=== PATIENT | male | born 1955 | race Caucasian/White ===

== ENCOUNTER 2016-06-29 08:00 | Inpatient (IN) | payer MEDICAID ==
[~2016-06-29] VITALS: Ht 180.3 cm; Wt 137.7 kg
[~2016-06-29 08:00] MED LIST: ASPI81TA27 PO; ATOR1TAB PO; BENA10TA3 PO; CARV25TA55 PO; CLOP75TA41 PO; FURO40TA4 PO; INSUINJ37 SUBCUT; METF-312 PO; POTA10TA34 PO
[2016-06-29 08:44] LABS: Basophils # (auto) 0 uL; Basophils % (auto) 0.4 % (0.0-2.0); Eosinophils # (auto) 0.2 uL; Hematocrit 48.8 % (41.0-53.0); Hemoglobin 16.5 g/dL (13.5-17.5); Lymphocytes # (auto) 1.1 uL; Lymphocytes % (auto) 13.4 % (10.0-50.0); Mean Corpuscular Hgb Conc. 33.9 g/dL (32.0-36.0); Mean Corpuscular Volume 91.2 fL (80.0-100.0); Mean Platelet Volume 8.6 fL (7.4-10.4); Monocytes # (auto) 0.7 uL; Monocytes % (auto) 8.7 % (0.0-12.0); Neutrophils # (auto) 6.1 uL; Neutrophils % (auto) 75.5 % (37.0-80.0); Platelet Count (auto) 196 10^3/uL (140-450); Red Cell Distribution Width 13.8 % (11.6-16.0); White Blood Cell 8.1 10^3/uL (4.4-10.8)
[2016-06-29 09:09] LABS: Albumin 3.9 g/dL (3.4-5.0); BUN/Creatinine Ratio 14.3; Calcium 8.2 mg/dL (8.5-10.1); Magnesium 2.1 mg/dL (1.6-2.6); Potassium 4.4 mmol/L (3.5-5.1)
[2016-06-29 09:13] LABS: Bilirubin, Total 0.5 mg/dL (0.2-1.0); Total Protein 7.9 g/dL (6.4-8.2)
[2016-06-29] MEDS ORDERED: ASPirin 81 mg TAB PO ONE (09:30)
[2016-06-29] MEDS ORDERED: NITROGLYCERIN 0.4 MG SL TAB SL ONE (09:30)
[2016-06-29] MEDS ORDERED: ENOXAPARIN SOD 150 MG/1 ML SYRINGE SC ONE (10:15)
[2016-06-29] MEDS ORDERED: NITROGLYCERIN 0.4 MG SL TAB SL PRN (13:45)
[2016-06-29] MEDS ORDERED: MORPHINE SULF INJ 2 MG/ML SYRINGE 1ML IV PRN (13:45)
[2016-06-29] MEDS ORDERED: BENAZEPRIL HCL 10 MG TAB PO ONE (14:15)
[2016-06-29] MEDS ORDERED: CLOPIDOGREL BISULFATE 75 MG TAB PO ONE (14:30)
[2016-06-29] MEDS ORDERED: HEPARIN IN NS 1000U/500ML (2UNIT/ML) 500 ML BAG IV ONE (15:15)
[2016-06-29 16:14] LABS: INR 1.08 (0.9-1.15); Prothrombin Time 11.1 sec (9.37-12.3)
[2016-06-29 17:53] VITALS: BP 122/77
[2016-06-29 18:04] VITALS: BP 122/77
[2016-06-29] MEDS: FUROSEMIDE 40 MG TAB PO SCH (18:07)
[2016-06-29 21:42] VITALS: BP 102/71
[2016-06-29] MEDS: CARVEDILOL 12.5 MG TAB PO SCH (21:42)
[2016-06-29] MEDS: POTASSIUM CHLORIDE 8 MEQ TAB PO SCH (21:42)
[2016-06-29] MEDS: ENOXAPARIN SOD 60 MG/0.6 ML SYRINGE SC SCH (21:42)
[2016-06-29] MEDS: metFORMIN HYDROCHLORIDE 500 MG TAB PO SCH (21:42)
[2016-06-29] MEDS: ATORVASTATIN 20 MG TAB PO SCH (21:42)
[2016-06-29] MEDS: INSULIN DETEMIR(LEVEMIR) 1unit/0.01ml Soln (100units/ml) SC SCH (21:50)
[2016-06-29] MEDS ORDERED: PATIENTS OWN MEDICATION (Carvedilol 25 MG) PO SCH ×2 (22:00)
[2016-06-30 05:00] VITALS: BP 121/84
[2016-06-30] MEDS: FUROSEMIDE 40 MG TAB PO SCH ×2 (06:37→18:37)
[2016-06-30 08:45] VITALS: BP 107/71
[2016-06-30] MEDS ORDERED: INSULIN GLARGINE 20 UNIT SUBCUT SCH (10:00)
[2016-06-30] MEDS ORDERED: PATIENTS OWN MEDICATION (Atorvastatin Calcium 1 TAB) PO SCH ×2 (10:00)
[2016-06-30] MEDS: ENOXAPARIN SOD 60 MG/0.6 ML SYRINGE SC SCH ×2 (10:17→22:06)
[2016-06-30] MEDS: metFORMIN HYDROCHLORIDE 500 MG TAB PO SCH (10:17)
[2016-06-30] MEDS: POTASSIUM CHLORIDE 8 MEQ TAB PO SCH ×2 (10:18→22:05)
[2016-06-30] MEDS: CLOPIDOGREL BISULFATE 75 MG TAB PO SCH (10:18)
[2016-06-30] MEDS: BENAZEPRIL HCL 10 MG TAB PO SCH (10:18)
[2016-06-30] MEDS: ASPirin-EC 81 mg tab PO SCH (10:19)
[2016-06-30] MEDS: CARVEDILOL 12.5 MG TAB PO SCH ×2 (10:19→22:05)
[2016-06-30 13:00] VITALS: BP 110/67
[2016-06-30] MEDS ORDERED: DEXTROSE (50%) 50ML SYRG IV PRN (14:15)
[2016-06-30] MEDS: SOD CHL 0.45% 1,000 ML IV SCH (15:04)
[2016-06-30 17:00] VITALS: BP 110/71
[2016-06-30] MEDS: ACCU-CHEK COMFORT CURVE STRIP VI SCH (18:37)
[2016-06-30] MEDS: InsuLIN REG 1unit/0.01ml Soln (100units/ml) SC SCH (18:46)
[2016-06-30 22:00] VITALS: BP 114/75
[2016-06-30] MEDS: INSULIN DETEMIR(LEVEMIR) 1unit/0.01ml Soln (100units/ml) SC SCH (22:00)
[2016-06-30] MEDS: ATORVASTATIN 20 MG TAB PO SCH (22:05)
[2016-06-30] MEDS: ACETYLCYSTEINE ORAL for CIN 20%(200MG/ML) 4ML PO SCH (22:06)
[2016-07-01] MEDS: ACCU-CHEK COMFORT CURVE STRIP VI SCH ×3 (01:14→12:40)
[2016-07-01] MEDS: SOD CHL 0.45% 1,000 ML IV SCH (05:13)
[2016-07-01 05:31] VITALS: BP 114/79
[2016-07-01 06:31] LABS: Basophils # (auto) 0 uL; Basophils % (auto) 0.4 % (0.0-2.0); Eosinophils # (auto) 0.2 uL; Eosinophils % (auto) 2.8 % (0.0-7.0); Hematocrit 43.9 % (41.0-53.0); Hemoglobin 15.4 g/dL (13.5-17.5); Lymphocytes # (auto) 1.2 uL; Lymphocytes % (auto) 17.8 % (10.0-50.0); Mean Corpuscular Hemoglobin 31.8 pg (28.0-32.0); Mean Corpuscular Hgb Conc. 35.2 g/dL (32.0-36.0); Mean Corpuscular Volume 90.3 fL (80.0-100.0); Mean Platelet Volume 8.3 fL (7.4-10.4); Monocytes # (auto) 0.7 uL; Neutrophils # (auto) 4.5 uL; Platelet Count (auto) 167 10^3/uL (140-450); Red Cell Distribution Width 14.2 % (11.6-16.0); White Blood Cell 6.6 10^3/uL (4.4-10.8)
[2016-07-01 06:33] LABS: INR 1.11 (0.9-1.15); Partial Thromboplastin Time 31.3 sec (22.64-33.71); Prothrombin Time 11.4 sec (9.37-12.3)
[2016-07-01] MEDS: FUROSEMIDE 40 MG TAB PO SCH (06:35)
[2016-07-01] MEDS: InsuLIN REG 1unit/0.01ml Soln (100units/ml) SC SCH ×3 (06:36→12:00)
[2016-07-01 06:40] LABS: Potassium 3.9 mmol/L (3.5-5.1)
[2016-07-01 06:50] LABS: BUN/Creatinine Ratio 13.7; Calcium 7.9 mg/dL (8.5-10.1)
[2016-07-01] MEDS ORDERED: fentaNYL CITRATE 100 MCG/2 ML VL ONE (08:13)
[2016-07-01] MEDS ORDERED: MIDAZOLAM HCL 1MG/1ML-2 ML VIAL ONE (08:13)
[2016-07-01] MEDS ORDERED: methylPREDNISolone SOD SUCC 125 MG/2 ML VL ONE (08:14)
[2016-07-01] MEDS ORDERED: ANGIOMAX 250 MG VIAL IV ONE (08:14)
[2016-07-01] MEDS ORDERED: SODIUM CHL 0.9% 50 ML ONE (08:14)
[2016-07-01] MEDS ORDERED: diphenhdrAMINE HCL 50 MG/1 ML VL ONE (08:15)
[2016-07-01] MEDS ORDERED: LIDOCAINE 2%HCL (LOCAL ANESTH.) INJ 20ML MDV ONE (08:42)
[2016-07-01] MEDS ORDERED: IOHEXOL 350 MG/ML 100ML IJ ONE (08:43)
[2016-07-01] MEDS: ENOXAPARIN SOD 60 MG/0.6 ML SYRINGE SC SCH (09:46)
[2016-07-01] MEDS: ASPirin-EC 81 mg tab PO SCH (12:30)
[2016-07-01] MEDS: CLOPIDOGREL BISULFATE 75 MG TAB PO SCH (12:30)
[2016-07-01] MEDS: POTASSIUM CHLORIDE 8 MEQ TAB PO SCH (12:30)
[2016-07-01] MEDS: CARVEDILOL 12.5 MG TAB PO SCH (12:31)
[2016-07-01] MEDS: BENAZEPRIL HCL 10 MG TAB PO SCH (12:32)
[2016-07-01 12:37] VITALS: BP 134/88
[2016-07-01] MEDS: ACETYLCYSTEINE ORAL for CIN 20%(200MG/ML) 4ML PO SCH (12:40)
[2016-07-01] MEDS ORDERED: SODIUM CHLOR 0.9% PF (SALINE LOCK) 10ML VIAL IV SCH (14:00)
[2016-07-01 14:40] VITALS: BP 134/88
[2016-07-01 14:59] VITALS: BP 134/88
== END 2016-07-01 16:53 | disposition home or self-care (01) | DRG 174 ==
LOC: ER 08:01 → TELE 08:02 → TELE-WESTW 17:35
PROVIDERS: ADMIT Internal Medicine Cardiovascular Disease; ATTEND Internal Medicine Cardiovascular Disease
PROC: 027034Z Dilation of Coronary Artery, One Artery with Drug-eluting Intraluminal Device, Percutaneous Approach (ICD-10-PCS; principal; 2016-07-01)
PROC: 4A023N7 Measurement of Cardiac Sampling and Pressure, Left Heart, Percutaneous Approach (ICD-10-PCS; 2016-07-01)
PROC: B2111ZZ Fluoroscopy of Multiple Coronary Arteries using Low Osmolar Contrast (ICD-10-PCS; 2016-07-01)
PROC: B2151ZZ Fluoroscopy of Left Heart using Low Osmolar Contrast (ICD-10-PCS; 2016-07-01)
DX: I21.4 Non-ST elevation (NSTEMI) myocardial infarction (principal); I42.0 Dilated cardiomyopathy; E11.21 Type 2 diabetes mellitus with diabetic nephropathy; I50.9 Heart failure, unspecified; I13.0 Hypertensive heart and chronic kidney disease with heart failure and stage 1 through stage 4 chronic kidney disease, or unspecified chronic kidney disease; Z68.41 Body mass index [BMI] 40.0-44.9, adult; E66.2 Morbid (severe) obesity with alveolar hypoventilation; I25.5 Ischemic cardiomyopathy; I48.91 Unspecified atrial fibrillation; I25.110 Atherosclerotic heart disease of native coronary artery with unstable angina pectoris; J98.11 Atelectasis; E11.22 Type 2 diabetes mellitus with diabetic chronic kidney disease; N18.2 Chronic kidney disease, stage 2 (mild); Z79.82 Long term (current) use of aspirin; I25.2 Old myocardial infarction; Z95.810 Presence of automatic (implantable) cardiac defibrillator; Z82.49 Family history of ischemic heart disease and other diseases of the circulatory system; Z91.041 Radiographic dye allergy status; Z91.09 Other allergy status, other than to drugs and biological substances
CPT/HCPCS: 36415; 71020; 80048; 80053; 82962; 83735; 84484; 85025; 85610; 85730; 86850; 86900; 86901; 92928; 93005; 93458; 96372; 99152; 99291; C1874; C1887; J1815; J2250

== ENCOUNTER → 2016-08-20 | Outpatient (CLI) | payer MEDICAID | END | disposition home or self-care (01) | LOC: Rad HDHVI 08:54 | PROVIDERS: ATTEND Internal Medicine Cardiovascular Disease | DX: R06.02 Shortness of breath (principal); Z95.5 Presence of coronary angioplasty implant and graft | CPT/HCPCS: 93306 ==

== ENCOUNTER 2019-09-12 22:12 | Inpatient (IN) | payer MEDICAID, OTHER ==
[~2019-09-12] VITALS: Ht 180.3 cm; Wt 113.7 kg
[~2019-09-12 22:12] MED LIST changes: +ASPI-404 PO; -ASPI81TA27 PO; -BENA10TA3 PO; +BENA10TA9 PO; -METF-312 PO; +METF-370 PO; -POTA10TA34 PO; +POTA1TAB61 PO
[2019-09-12 23:01] LABS: Basophils # (auto) 0 10 ^3/uL (0-0.2); Basophils % (auto) 0.5 % (0.0-2.0); Eosinophils # (auto) 0.1 10 ^3/uL (0-0.8); Eosinophils % (auto) 1.2 % (0.0-7.0); Hematocrit 49.1 % (41.0-53.0); Hemoglobin 16.7 g/dL (13.5-17.5); Lymphocytes # (auto) 0.9 10 ^3/uL (0.4-5.4); Lymphocytes % (auto) 9.5 % (10.0-50.0); Mean Corpuscular Volume 97.1 fL (80.0-100.0); Monocytes # (auto) 0.7 10 ^3/uL (0-1.3); Monocytes % (auto) 7.9 % (0.0-12.0); Neutrophils # (auto) 7.4 10 ^3/uL (1.6-8.6); Neutrophils % (auto) 80.9 % (37.0-80.0); Platelet Count (auto) 179 10^3/uL (140-450); Red Blood Cells 5.05 10^6/uL (4.5-5.90); Red Cell Distribution Width 14.6 % (11.8-14.3); White Blood Cell 9.2 10^3/uL (4.4-10.8)
[2019-09-12 23:16] LABS: INR 1.18 (0.9-1.15); Partial Thromboplastin Time 44.7 sec (23.64-32.05)
[2019-09-12 23:21] LABS: Potassium 4.4 mmol/L (3.5-5.1)
[2019-09-12 23:26] LABS: Albumin 3.5 g/dL (3.4-5.0); BUN/Creatinine Ratio 14.8; Calcium 8.4 mg/dL (8.5-10.1)
[2019-09-12 23:31] LABS: Bilirubin, Total 0.8 mg/dL (0.2-1.0); Total Protein 7.7 g/dL (6.4-8.2)
[2019-09-13 00:54] LABS: Urine Bacteria FEW /hpf (None Seen); Urine Blood Negative /uL (Negative); Urine Hyaline Cast FEW /lpf (0 - 2); Urine Mucus FEW (None Seen); Urine Specific Gravity 1.015 (1.001-1.035); Urine WBC 1 /hpf (0 - 3)
[2019-09-13] MEDS ORDERED: InsuLIN REG 1unit/0.01ml Soln (100units/ml) IV ONE (01:30)
[2019-09-13] MEDS ORDERED: ONDANSETRON HCL 4 MG/2 ML VIAL IV PRN (02:30)
[2019-09-13] MEDS ORDERED: ACETAMINOPHEN 325 MG TAB PO PRN (02:30)
[2019-09-13] MEDS ORDERED: DEXTROSE (50%) 50ML SYRG IV PRN (02:30)
[2019-09-13] MEDS ORDERED: TEMAZEPAM 15 MG CAP PO PRN (02:30)
[2019-09-13] MEDS ORDERED: MORPHINE SULF INJ 2 MG/ML SYRINGE 1ML IV PRN (02:45)
[2019-09-13] MEDS ORDERED: NITROGLYCERIN 0.4 MG SL TAB SL PRN (02:45)
[2019-09-13 05:00] VITALS: BP 135/97
[2019-09-13] MEDS ORDERED: DABI75CA5 PO (05:00)
[2019-09-13] MEDS ORDERED: GLIP5TAB12 PO (05:02)
[2019-09-13] MEDS ORDERED: CHOL20007 PO (05:02)
[2019-09-13] MEDS: FUROSEMIDE 40 MG TAB PO SCH ×2 (05:58→18:01)
[2019-09-13] MEDS: ACCU-CHEK COMFORT CURVE STRIP VI SCH ×3 (06:05→18:01)
[2019-09-13] MEDS: InsuLIN REG 1unit/0.01ml Soln (100units/ml) SC SCH ×3 (06:14→18:05)
[2019-09-13 09:00] VITALS: BP 124/80
[2019-09-13] MEDS ORDERED: CLOPIDOGREL BISULFATE 75 MG TAB PO SCH (10:00)
[2019-09-13] MEDS: ENOXAPARIN SOD 40 MG/0.4 ML SYRINGE SC SCH (10:00)
[2019-09-13] MEDS: PANTOPRAZOLE 40 MG TAB PO SCH ×2 (10:00→11:46)
[2019-09-13] MEDS ORDERED: OPTISON 3ml Vial for INJ IV ONE (10:58)
[2019-09-13] MEDS: ASPirin 81 mg TAB PO SCH (11:44)
[2019-09-13] MEDS: CARVEDILOL 12.5 MG TAB PO SCH ×2 (11:45→21:32)
[2019-09-13] MEDS: BENAZEPRIL HCL 10 MG TAB PO SCH (11:46)
[2019-09-13 12:58] VITALS: BP 124/81
[2019-09-13 16:44] VITALS: BP 111/66
[2019-09-13 22:00] VITALS: BP 106/72
[2019-09-13] MEDS ORDERED: ATORVASTATIN 20 MG TAB PO SCH (22:00)
[2019-09-14] VITALS (16 sets, daily range): BP systolic 102–126; BP diastolic 54–76
[2019-09-14] MEDS: ACCU-CHEK COMFORT CURVE STRIP VI SCH ×4 (00:13→17:46)
[2019-09-14] MEDS: InsuLIN REG 1unit/0.01ml Soln (100units/ml) SC SCH ×4 (06:00→17:47)
[2019-09-14] MEDS: FUROSEMIDE 40 MG TAB PO SCH ×2 (06:22→17:42)
[2019-09-14] MEDS ORDERED: LIDOCAINE 2%HCL (LOCAL ANESTH.) INJ 20ML MDV ONE (08:32)
[2019-09-14] MEDS ORDERED: IODIXANOL 320MG/ML 100ML BTL IV ONE ×2 (08:32→08:55)
[2019-09-14] MEDS ORDERED: fentaNYL CITRATE 100 MCG/2 ML VL ONE (08:54)
[2019-09-14] MEDS ORDERED: MIDAZOLAM HCL 1MG/1ML-2 ML VIAL ONE (08:54)
[2019-09-14] MEDS ORDERED: VERAPAMIL 2.5MG/ML INJ 2ML VIAL IV ONE ×2 (08:54→08:59)
[2019-09-14] MEDS ORDERED: ANGIOMAX 250 MG VIAL IV ONE (08:54)
[2019-09-14] MEDS ORDERED: SODIUM CHL 0.9% 0 ML ONE (08:55)
[2019-09-14] MEDS ORDERED: CLOPIDOGREL 300 MG TAB PO ONE (10:00)
[2019-09-14] MEDS: ENOXAPARIN SOD 40 MG/0.4 ML SYRINGE SC SCH (10:36)
[2019-09-14] MEDS ORDERED: CLOPIDOGREL 300 MG TAB ONE (10:39)
[2019-09-14] MEDS: ASPirin 81 mg TAB PO SCH (10:44)
[2019-09-14] MEDS: PANTOPRAZOLE 40 MG TAB PO SCH (10:44)
[2019-09-14] MEDS: BENAZEPRIL HCL 10 MG TAB PO SCH (10:45)
[2019-09-14 10:46] LABS: Basophils # (auto) 0 10 ^3/uL (0-0.2); Basophils % (auto) 0.5 % (0.0-2.0); Eosinophils # (auto) 0.1 10 ^3/uL (0-0.8); Eosinophils % (auto) 1.7 % (0.0-7.0); Hematocrit 48.3 % (41.0-53.0); Hemoglobin 16.3 g/dL (13.5-17.5); Lymphocytes # (auto) 0.7 10 ^3/uL (0.4-5.4); Lymphocytes % (auto) 9.2 % (10.0-50.0); Mean Corpuscular Hgb Conc. 33.7 g/dL (32.0-36.0); Mean Corpuscular Volume 97.8 fL (80.0-100.0); Monocytes # (auto) 0.7 10 ^3/uL (0-1.3); Monocytes % (auto) 9.8 % (0.0-12.0); Neutrophils # (auto) 5.6 10 ^3/uL (1.6-8.6); Neutrophils % (auto) 78.8 % (37.0-80.0); Platelet Count (auto) 160 10^3/uL (140-450); Red Blood Cells 4.94 10^6/uL (4.5-5.90); Red Cell Distribution Width 14.7 % (11.8-14.3); White Blood Cell 7.1 10^3/uL (4.4-10.8)
[2019-09-14] MEDS: CARVEDILOL 12.5 MG TAB PO SCH (10:52)
[2019-09-14 10:59] LABS: Calcium 8.3 mg/dL (8.5-10.1); Potassium 4.4 mmol/L (3.5-5.1)
[2019-09-14] MEDS ORDERED: ENOXAPARIN SOD 100 MG/1 ML SYRINGE SC SCH (11:15)
[2019-09-15] MEDS ORDERED: CLOPIDOGREL BISULFATE 75 MG TAB PO SCH (10:00)
[2019-09-15] MEDS ORDERED: AMIODARONE HCL 200 MG TAB PO SCH (10:00)
[2019-09-15] MEDS ORDERED: ENOXAPARIN SOD 100 MG/1 ML SYRINGE SC SCH (10:00)
== END 2019-09-14 20:50 | disposition short-term general hospital (02) | DRG 280 ==
LOC: EDBD 22:12 → ER 22:14 → UNDOADMIN 22:15 → WEST WING 22:15 → TELE 22:15 → TELE-WESTW 09-13 04:31 → DOU IN ICU 09-14 10:36
PROVIDERS: ADMIT Nurse Practitioner; ATTEND Family Medicine
PROC: 5A09357 Assistance with Respiratory Ventilation, Less than 24 Consecutive Hours, Continuous Positive Airway Pressure (ICD-10-PCS; principal; 2019-09-13)
PROC: B2111ZZ Fluoroscopy of Multiple Coronary Arteries using Low Osmolar Contrast (ICD-10-PCS; 2019-09-14)
PROC: 5A09357 Assistance with Respiratory Ventilation, Less than 24 Consecutive Hours, Continuous Positive Airway Pressure (ICD-10-PCS; 2019-09-14)
DX: T82.119A Breakdown (mechanical) of unspecified cardiac electronic device, initial encounter (principal); I21.4 Non-ST elevation (NSTEMI) myocardial infarction; I50.23 Acute on chronic systolic (congestive) heart failure; I13.0 Hypertensive heart and chronic kidney disease with heart failure and stage 1 through stage 4 chronic kidney disease, or unspecified chronic kidney disease; Z68.41 Body mass index [BMI] 40.0-44.9, adult; N18.3 Chronic kidney disease, stage 3 (moderate); E11.22 Type 2 diabetes mellitus with diabetic chronic kidney disease; E78.5 Hyperlipidemia, unspecified; E66.01 Morbid (severe) obesity due to excess calories; E11.65 Type 2 diabetes mellitus with hyperglycemia; I25.10 Atherosclerotic heart disease of native coronary artery without angina pectoris; E78.00 Pure hypercholesterolemia, unspecified; I48.91 Unspecified atrial fibrillation; Z88.8 Allergy status to other drugs, medicaments and biological substances; Z91.040 Latex allergy status; Z98.61 Coronary angioplasty status; Z79.4 Long term (current) use of insulin; Z79.84 Long term (current) use of oral hypoglycemic drugs; Z79.899 Other long term (current) drug therapy; Z95.0 Presence of cardiac pacemaker; Z82.49 Family history of ischemic heart disease and other diseases of the circulatory system; Z80.8 Family history of malignant neoplasm of other organs or systems; Z83.3 Family history of diabetes mellitus; Z79.82 Long term (current) use of aspirin; Z03.818 Encounter for observation for suspected exposure to other biological agents ruled out
CPT/HCPCS: 36415; 70450; 71045; 72125; 80048; 80053; 81001; 82962; 83036; 84484; 85025; 85610; 85730; 87081; 93005; 93306; 93454; 93886; 94660; 96374; 99152; G0378; J1815; J2250; Q9956; Q9967

== ENCOUNTER 2020-07-06 19:03 | Inpatient (IN) | payer OTHER ==
[~2020-07-06] VITALS: Ht 180.3 cm; Wt 136.6 kg
[~2020-07-06 19:03] MED LIST changes: -ASPI-404 PO; +ASPI-543 PO; +ATOR-47 PO; -ATOR1TAB PO; +CHOL20007 PO; -CLOP75TA41 PO; +DABI75CA5 PO; +GLIP5TAB12 PO
[2020-07-06 19:40] LABS: Basophils # (auto) 0.1 10 ^3/uL (0-0.2); Basophils % (auto) 1.8 % (0.0-2.0); Eosinophils # (auto) 0.1 10 ^3/uL (0-0.8); Eosinophils % (auto) 1.1 % (0.0-7.0); Hematocrit 44.2 % (41.0-53.0); Hemoglobin 15.1 g/dL (13.5-17.5); Lymphocytes # (auto) 0.8 10 ^3/uL (0.4-5.4); Lymphocytes % (auto) 11.5 % (10.0-50.0); Mean Corpuscular Hemoglobin 32.7 pg (28.0-32.0); Mean Corpuscular Hgb Conc. 34.1 g/dL (32.0-36.0); Mean Corpuscular Volume 95.7 fL (80.0-100.0); Monocytes # (auto) 0.8 10 ^3/uL (0-1.3); Monocytes % (auto) 11.4 % (0.0-12.0); Neutrophils # (auto) 5.4 10 ^3/uL (1.6-8.6); Neutrophils % (auto) 74.2 % (37.0-80.0); Nucleated Red Blood Cells % 0.1 %; Platelet Count (auto) 189 10^3/uL (140-450); Red Blood Cells 4.62 10^6/uL (4.5-5.90); Red Cell Distribution Width 15.5 % (11.8-14.3); White Blood Cell 7.3 10^3/uL (4.4-10.8)
[2020-07-06 19:59] LABS: Albumin 3.3 g/dL (3.4-5.0); Calcium 8.2 mg/dL (8.5-10.1); Magnesium 1.9 mg/dL (1.6-2.6); Potassium 4.8 mmol/L (3.5-5.1)
[2020-07-06 20:05] LABS: BUN/Creatinine Ratio 24.3; Bilirubin, Total 0.6 mg/dL (0.2-1.0); Total Protein 7.1 g/dL (6.4-8.2)
[2020-07-06 20:39] LABS: INR 1.04 (0.9-1.15)
[2020-07-06] MEDS ORDERED: ENOXAPARIN SOD 150 MG/1 ML SYRINGE SC ONE (21:15)
[2020-07-06] MEDS ORDERED: ACETAMINOPHEN 325 MG TAB PO PRN (22:15)
[2020-07-06] MEDS ORDERED: TEMAZEPAM 15 MG CAP PO PRN (22:15)
[2020-07-06] MEDS ORDERED: MORPHINE SULF INJ 2 MG/ML SYRINGE 1ML IV PRN (22:15)
[2020-07-06] MEDS ORDERED: ONDANSETRON HCL 4 MG/2 ML VIAL IV PRN (22:15)
[2020-07-06] MEDS ORDERED: NITROGLYCERIN 0.4 MG SL TAB SL PRN (22:15)
[2020-07-06] MEDS ORDERED: DEXTROSE (50%) 50ML SYRG IV PRN (22:15)
[2020-07-06] MEDS ORDERED: IOHEXOL 350 MG/ML 100ML IJ ONE (22:30)
[2020-07-07] VITALS (23 sets, daily range): BP systolic 112–150; BP diastolic 55–75
[2020-07-07] MEDS: cefTRIAXone 1GM/50ML D5W 50 ML IV SCH (01:14)
[2020-07-07] MEDS ORDERED: CLOP75TA70 PO (03:43)
[2020-07-07] MEDS: FUROSEMIDE 20 MG TAB PO SCH ×2 (06:21→19:01)
[2020-07-07] MEDS: ACCU-CHEK COMFORT CURVE STRIP VI SCH ×4 (06:21→22:21)
[2020-07-07] MEDS: InsuLIN REG 1unit/0.01ml Soln (100units/ml) SC SCH ×4 (06:25→22:19)
[2020-07-07] MEDS ORDERED: HYDROcodone-ACET 5/325MG TAB PO ONE (06:30)
[2020-07-07 07:10] LABS: Urine Bacteria NONE SEEN /hpf (None Seen); Urine Blood TRACE /uL (Negative); Urine Specific Gravity 1.047 (1.001-1.035); Urine WBC <1 /hpf (0 - 3)
[2020-07-07] MEDS: CARVEDILOL 12.5 MG TAB PO SCH ×2 (09:46→22:15)
[2020-07-07] MEDS: FAMOTIDINE 20 MG TAB PO SCH ×2 (09:47→22:15)
[2020-07-07] MEDS ORDERED: DABIGATRAN 75 MG CAP PO SCH (10:00)
[2020-07-07] MEDS ORDERED: ASPirin 81 mg TAB PO SCH (10:00)
[2020-07-07 10:09] LABS: Basophils # (auto) 0.1 10 ^3/uL (0-0.2); Basophils % (auto) 0.6 % (0.0-2.0); Eosinophils # (auto) 0.1 10 ^3/uL (0-0.8); Eosinophils % (auto) 1.4 % (0.0-7.0); Hematocrit 45.8 % (41.0-53.0); Lymphocytes % (auto) 10.7 % (10.0-50.0); Mean Corpuscular Hemoglobin 33.2 pg (28.0-32.0); Mean Corpuscular Hgb Conc. 34.9 g/dL (32.0-36.0); Mean Corpuscular Volume 95.2 fL (80.0-100.0); Monocytes # (auto) 0.9 10 ^3/uL (0-1.3); Monocytes % (auto) 10.4 % (0.0-12.0); Neutrophils % (auto) 76.9 % (37.0-80.0); Nucleated Red Blood Cells % 0.1 %; Platelet Count (auto) 188 10^3/uL (140-450); Red Blood Cells 4.81 10^6/uL (4.5-5.90); Red Cell Distribution Width 15.4 % (11.8-14.3); White Blood Cell 9.1 10^3/uL (4.4-10.8)
[2020-07-07 10:35] LABS: Albumin 3.5 g/dL (3.4-5.0); Calcium 8.7 mg/dL (8.5-10.1); Potassium 3.9 mmol/L (3.5-5.1)
[2020-07-07 10:41] LABS: BUN/Creatinine Ratio 19.3; Bilirubin, Total 0.8 mg/dL (0.2-1.0); Total Protein 7.6 g/dL (6.4-8.2)
[2020-07-07] MEDS ORDERED: LIDOCAINE 2%HCL (LOCAL ANESTH.) INJ 20ML MDV ONE (12:31)
[2020-07-07] MEDS ORDERED: ANGIOMAX 250 MG VIAL IV ONE ×5 (13:05→14:29)
[2020-07-07] MEDS ORDERED: fentaNYL CITRATE 100 MCG/2 ML VL ONE (13:05)
[2020-07-07] MEDS ORDERED: MIDAZOLAM HCL 1MG/1ML-2 ML VIAL ONE (13:05)
[2020-07-07] MEDS ORDERED: SODIUM CHL 0.9% 50 ML ONE ×2 (13:05→13:52)
[2020-07-07] MEDS ORDERED: IODIXANOL 320MG/ML 100ML BTL IV ONE (13:06)
[2020-07-07] MEDS ORDERED: VERAPAMIL 2.5MG/ML INJ 2ML VIAL IV ONE (13:11)
[2020-07-07] MEDS ORDERED: FAMOTIDINE (10MG/ML) 2ML VL IV ONE (13:12)
[2020-07-07] MEDS ORDERED: diphenhdrAMINE HCL 50 MG/1 ML VL ONE (13:12)
[2020-07-07] MEDS ORDERED: methylPREDNISolone SOD SUCC 125 MG/2 ML VL ONE (13:12)
[2020-07-07] MEDS ORDERED: HEPARIN DRIP/D5W 100UNITS/ML 250 ML IV ONE (13:39)
[2020-07-07] MEDS ORDERED: MAGNESIUM SULFATE 1GM/100ML 100 ML IV STA (13:56)
[2020-07-07] MEDS ORDERED: NITROGLYCERIN 50MG/250ML 250 ML IV ONE (13:58)
[2020-07-07] MEDS ORDERED: FUROSEMIDE 20 MG/2 ML VIAL ONE (13:58)
[2020-07-07] MEDS ORDERED: NITROGLYCERIN 0.4MG/DOSE SPRAY 4.9GM ONE (13:59)
[2020-07-07] MEDS ORDERED: MAGNESIUM SULFATE 1GM/100ML 200 ML IV STA (14:04)
[2020-07-07] MEDS: NITROGLYCERIN 50MG/250ML 250 ML IV SCH (15:15)
[2020-07-07] MEDS: SODIUM CHL 0.9% IV SCH (15:25)
[2020-07-07] MEDS: ANGIOMAX IV SCH (15:25)
[2020-07-07] MEDS: HYDROmorphone HCL 2 MG/ML VL IV PRN (16:23)
[2020-07-07 19:23] LABS: INR > 8.0 (0.9-1.15); Partial Thromboplastin Time 128.4 sec (23.0-31.2)
[2020-07-07] MEDS ORDERED: INSULIN LANTUS (GLARGINE) 1 /0.01ml (100units/ml) SC SCH (22:00)
[2020-07-07] MEDS ORDERED: ATORVASTATIN 20 MG TAB PO SCH (22:00)
[2020-07-07 22:16] LABS: Basophils # (auto) 0 10 ^3/uL (0-0.2); Basophils % (auto) 0.2 % (0.0-2.0); Eosinophils # (auto) 0 10 ^3/uL (0-0.8); Eosinophils % (auto) 0.1 % (0.0-7.0); Hematocrit 41.8 % (41.0-53.0); Hemoglobin 14.9 g/dL (13.5-17.5); Lymphocytes # (auto) 0.5 10 ^3/uL (0.4-5.4); Lymphocytes % (auto) 5.4 % (10.0-50.0); Mean Corpuscular Hemoglobin 33.9 pg (28.0-32.0); Mean Corpuscular Hgb Conc. 35.6 g/dL (32.0-36.0); Mean Corpuscular Volume 95.2 fL (80.0-100.0); Monocytes # (auto) 0.2 10 ^3/uL (0-1.3); Monocytes % (auto) 2.4 % (0.0-12.0); Neutrophils # (auto) 7.8 10 ^3/uL (1.6-8.6); Neutrophils % (auto) 91.9 % (37.0-80.0); Nucleated Red Blood Cells % 0.1 %; Platelet Count (auto) 177 10^3/uL (140-450); Red Blood Cells 4.39 10^6/uL (4.5-5.90); Red Cell Distribution Width 15.2 % (11.8-14.3); White Blood Cell 8.5 10^3/uL (4.4-10.8)
[2020-07-08] VITALS (75 sets, daily range): BP systolic 92–166; BP diastolic 47–89
[2020-07-08] MEDS: ANGIOMAX IV SCH (02:00)
[2020-07-08] MEDS: SODIUM CHL 0.9% IV SCH (02:00)
[2020-07-08] MEDS: HYDROmorphone HCL 2 MG/ML VL IV PRN ×2 (02:18→04:20)
[2020-07-08 03:14] LABS: Basophils # (auto) 0 10 ^3/uL (0-0.2); Basophils % (auto) 0.1 % (0.0-2.0); Eosinophils # (auto) 0 10 ^3/uL (0-0.8); Eosinophils % (auto) 0.1 % (0.0-7.0); Lymphocytes # (auto) 0.6 10 ^3/uL (0.4-5.4); Monocytes # (auto) 0.7 10 ^3/uL (0-1.3); Red Cell Distribution Width 15.1 % (11.8-14.3)
[2020-07-08 03:17] LABS: Hemoglobin 14.3 g/dL (13.5-17.5); Lymphocytes % (auto) 5.6 % (10.0-50.0); Mean Corpuscular Hemoglobin 32.8 pg (28.0-32.0); Mean Corpuscular Hgb Conc. 34.1 g/dL (32.0-36.0); Mean Corpuscular Volume 96.3 fL (80.0-100.0); Monocytes % (auto) 6.3 % (0.0-12.0); Neutrophils # (auto) 9.5 10 ^3/uL (1.6-8.6); Neutrophils % (auto) 87.9 % (37.0-80.0); Nucleated Red Blood Cells % 0.1 %; Platelet Count (auto) 175 10^3/uL (140-450); Red Blood Cells 4.36 10^6/uL (4.5-5.90); White Blood Cell 10.8 10^3/uL (4.4-10.8)
[2020-07-08] MEDS ORDERED: PHENYLEPHRINE HCL 10 MG/ML VL ONE (05:12)
[2020-07-08] MEDS ORDERED: HYDROcodone-ACET 5/325MG TAB PO PRN (05:45)
[2020-07-08] MEDS ORDERED: hydrALAZINE HCL 20 MG/ML VL IV PRN (06:00)
[2020-07-08] MEDS ORDERED: hydrALAZINE HCL 20 MG/ML VL ONE (06:02)
[2020-07-08] MEDS: ACCU-CHEK COMFORT CURVE STRIP VI SCH ×2 (06:11→11:22)
[2020-07-08] MEDS: FUROSEMIDE 20 MG TAB PO SCH (06:11)
[2020-07-08] MEDS: InsuLIN REG 1unit/0.01ml Soln (100units/ml) SC SCH ×2 (06:43→11:25)
[2020-07-08] MEDS: NITROGLYCERIN 50MG/250ML 250 ML IV SCH (07:00)
[2020-07-08 08:23] LABS: INR 2.87 (0.9-1.15)
[2020-07-08 08:27] LABS: Albumin 3.4 g/dL (3.4-5.0); Calcium 8.1 mg/dL (8.5-10.1); Magnesium 2.4 mg/dL (1.6-2.6); Partial Thromboplastin Time 72.7 sec (23.0-31.2); Potassium 4.4 mmol/L (3.5-5.1)
[2020-07-08 08:31] LABS: BUN/Creatinine Ratio 21.4; Bilirubin, Total 1.4 mg/dL (0.2-1.0); Total Protein 7.2 g/dL (6.4-8.2)
[2020-07-08] MEDS: cefTRIAXone 1GM/50ML D5W 50 ML IV SCH (08:33)
[2020-07-08] MEDS: FAMOTIDINE 20 MG TAB PO SCH (09:50)
[2020-07-08] MEDS: CARVEDILOL 12.5 MG TAB PO SCH (09:50)
[2020-07-08] MEDS ORDERED: BENAZEPRIL HCL 10 MG TAB PO SCH (10:00)
[2020-07-08] MEDS ORDERED: CLOPIDOGREL BISULFATE 75 MG TAB PO SCH (10:00)
[2020-07-08 13:32] LABS: INR 2.14 (0.9-1.15)
[2020-07-08 14:10] LABS: Partial Thromboplastin Time 73.1 sec (23.0-31.2)
[2020-07-08] MEDS ORDERED: INSULIN LANTUS (GLARGINE) 1 /0.01ml (100units/ml) SC SCH (22:00)
== END 2020-07-08 17:45 | disposition short-term general hospital (02) | DRG 270 ==
LOC: ER 19:03 → EDBD 19:03 → TELE 22:15 → TELE-WESTW 07-07 01:30 → ICU WEST 07-07 17:48
PROVIDERS: ADMIT Nurse Practitioner; ATTEND Internal Medicine
PROC: 5A02210 Assistance with Cardiac Output using Balloon Pump, Continuous (ICD-10-PCS; principal; 2020-07-07)
PROC: 4A023N7 Measurement of Cardiac Sampling and Pressure, Left Heart, Percutaneous Approach (ICD-10-PCS; 2020-07-07)
PROC: B211YZZ Fluoroscopy of Multiple Coronary Arteries using Other Contrast (ICD-10-PCS; 2020-07-07)
PROC: B215YZZ Fluoroscopy of Left Heart using Other Contrast (ICD-10-PCS; 2020-07-07)
PROC: 5A09357 Assistance with Respiratory Ventilation, Less than 24 Consecutive Hours, Continuous Positive Airway Pressure (ICD-10-PCS; 2020-07-07)
DX: I21.4 Non-ST elevation (NSTEMI) myocardial infarction (principal); J96.00 Acute respiratory failure, unspecified whether with hypoxia or hypercapnia; I50.43 Acute on chronic combined systolic (congestive) and diastolic (congestive) heart failure; N17.0 Acute kidney failure with tubular necrosis; I13.0 Hypertensive heart and chronic kidney disease with heart failure and stage 1 through stage 4 chronic kidney disease, or unspecified chronic kidney disease; Z68.41 Body mass index [BMI] 40.0-44.9, adult; I42.9 Cardiomyopathy, unspecified; R55 Syncope and collapse; E66.01 Morbid (severe) obesity due to excess calories; E78.5 Hyperlipidemia, unspecified; E11.22 Type 2 diabetes mellitus with diabetic chronic kidney disease; N18.9 Chronic kidney disease, unspecified; I25.10 Atherosclerotic heart disease of native coronary artery without angina pectoris; I48.0 Paroxysmal atrial fibrillation; Z20.822 Contact with and (suspected) exposure to COVID-19; Z82.49 Family history of ischemic heart disease and other diseases of the circulatory system; Z88.8 Allergy status to other drugs, medicaments and biological substances; I25.2 Old myocardial infarction; Z91.040 Latex allergy status; Z83.3 Family history of diabetes mellitus; Z95.810 Presence of automatic (implantable) cardiac defibrillator; Z98.61 Coronary angioplasty status
CPT/HCPCS: 36415; 71045; 71275; 74018; 80053; 80061; 81001; 82306; 82962; 83036; 83735; 83880; 84443; 84484; 85025; 85379; 85384; 85610; 85730; 87081; 87426; 93005; 93306; 93886; 94660; 96361; 96365; 99152; 99153; G0378; J0696; J1815; J2250; J2405; J3490; Q9967